=== PATIENT | male | born 1940 | race Caucasian/White ===

== ENCOUNTER → 2017-09-14 | Outpatient (CLI) | payer MEDICARE, BC | END | disposition home or self-care (01) | LOC: PCVCCLINIC 11:33 | DX: R01.1 Cardiac murmur, unspecified (principal); I35.0 Nonrheumatic aortic (valve) stenosis; I05.0 Rheumatic mitral stenosis; E78.5 Hyperlipidemia, unspecified; I10 Essential (primary) hypertension; E11.9 Type 2 diabetes mellitus without complications | CPT/HCPCS: 93005; G0463 ==

== ENCOUNTER → 2017-12-16 | Outpatient (CLI) | payer MEDICARE, BC | END | disposition home or self-care (01) | LOC: PCVCCLINIC 11:47 | PROVIDERS: ATTEND Internal Medicine | DX: I10 Essential (primary) hypertension (principal); I35.0 Nonrheumatic aortic (valve) stenosis; R01.1 Cardiac murmur, unspecified; E78.5 Hyperlipidemia, unspecified; Z79.82 Long term (current) use of aspirin | CPT/HCPCS: G0463 ==

== ENCOUNTER → 2018-04-05 | Outpatient (CLI) | payer MEDICARE, BC ==
--- NOTE | 2018-04-05 11:54 | PCVCIMAG ---
APPROVED REPORT Study performed: 04/05/2018 09:49:00 EXAM: Comprehensive 2D, Doppler, and color-flow Echocardiogram Patient Location: Echo lab Status: routine BSA: 2.11 HR: 82 bpmBP: 130/70 mmHg Rhythm: NSR Other Information Study Quality: Technically Difficult Risk Factors: Cardiac Risk Factors: HTN, Hyperlipidemia, DM Indications Diabetes Hypertension/HDD 2D Dimensions IVSd: 14.07 (7-11mm)LVOT Diam: 19.64 (18-24mm) LVDd: 35.98 mm PWd: 11.63 (7-11mm)Ascending Ao: 39.13 (22-36mm) LVDs: 29.23 (25-40mm) Left Atrium: 35.28 (27-40mm) Aortic Root: 30.18 mm LV Single Plane 4CH: 46.35 % LV Single Plane 2CH: 66.88 % Volumes Left Atrial Volume (Systole) Single Plane 4CH: 50.77 mLSingle Plane 2CH: 53.34 mL LA ESV Index: 25.00 mL/m2 Aortic Valve AoV Peak [place].: 4.35 m/s AO Peak Gr.: 75.53 mmHgLVOT Max P.62 mmHg AO Mean Gr.: 55.32 mmHgLVOT Mean P.69 mmHg AO V2 Mean: 3.68 m/sLVOT Max V: 1.07 m/s AO V2 VTI: 93.31 cmLVOT Mean V: 0.79 m/s DANUTA (VTI): 0.84 [id number] V1 VTI: 25.87 cm DANUTA Vmax: 0.75 cm2 AI Vmax: 4.12 m/sSV (LVOT): 78.[address] [place]: 3.62 m/s2 AI PHT: 330.13 ms Mitral Valve MV Peak Gr.: 11.03 mmHg MV Mean Gr.: 5.68 mmHgE/A Ratio: 1.0 MV Decel. Time: 281.18 ms MV E Max [place].: 1.40 m/s MV A [place].: 1.45 m/s MV Max [place].: 1.66 m/s MV Mean [place].: 1.14 m/s MV VTI: 434.08 mm MVA VTI: 180.52 mm2 MV PHT: 95.17 ms MVA (PHT): 2.31 cm2 TDI E/Lateral E': 20.00E/Medial E': 23.33 Medial E' [place].: 0.06 m/s Lateral E' [place].: 0.07 m/s Pulmonary Valve PV Peak Gr.: 2.13 mmHg Tricuspid Valve TR Peak [place].: 3.34 m/s TR Peak Gr.: 44.50 mmHg Left Ventricle The left ventricle is normal size. There is normal LV segmental wall motion. Mild concentric left ventricular hypertrophy. Left ventricular systolic function is normal. The left ventricular ejection fraction is within the normal range. LVEF is 55-60%. The left ventricular diastolic function is normal. Right Ventricle The right ventricle is normal size. The right ventricular systolic function is normal. Atria The left atrium size is normal. The right atrium size is normal. Aortic Valve Aortic valve leaflets are moderately thickened. Trace aortic regurgitation. Aortic peak gradient is 76mmHg. Mean gradient is 55mmHg. Calculated aortic valve is .7cm2. Mitral Valve Severe mitral annular calcification. Mild mitral regurgitation. Mitral valve area calculated 1.8cm2. Tricuspid Valve The tricuspid valve is normal in structure. Trace tricuspid regurgitation. Pulmonary artery pressure 52mmHg. Pulmonic Valve The pulmonary valve is normal in structure. Trace pulmonic regurgitation. Great Vessels The aortic root is normal in size. IVC is normal in size and collapses >50% with inspiration. Pericardium There is no pericardial effusion. <Conclusion> The left ventricle is normal size. LVEF is 55-60%. Aortic valve leaflets are moderately thickened. Trace aortic regurgitation. Aortic peak gradient is 76mmHg. Mean gradient is 55mmHg. Calculated aortic valve is .7cm2. Severe mitral annular calcification. Mild mitral regurgitation. Mitral valve area calculated 1.8cm2. The tricuspid valve is normal in structure. Trace tricuspid regurgitation. Pulmonary artery pressure 52mmHg. The pulmonary valve is normal in structure. Trace pulmonic regurgitation. There is no pericardial effusion.
== END | disposition home or self-care (01) ==
LOC: PCVCIMAG 12:31
PROVIDERS: ATTEND Internal Medicine
DX: Z01.812 Encounter for preprocedural laboratory examination (principal); I34.0 Nonrheumatic mitral (valve) insufficiency; R01.1 Cardiac murmur, unspecified; I10 Essential (primary) hypertension; R06.00 Dyspnea, unspecified; E78.5 Hyperlipidemia, unspecified; E11.9 Type 2 diabetes mellitus without complications; Z79.82 Long term (current) use of aspirin; Z87.891 Personal history of nicotine dependence
CPT/HCPCS: 36415; 93005; 93306; G0463

== ENCOUNTER → 2018-07-25 | Outpatient (CLI) | payer MEDICARE, BC | END | disposition home or self-care (01) | LOC: PCVCCLINIC 10:00 | PROVIDERS: ATTEND Internal Medicine | DX: I08.0 Rheumatic disorders of both mitral and aortic valves (principal); I10 Essential (primary) hypertension; E11.9 Type 2 diabetes mellitus without complications; J44.9 Chronic obstructive pulmonary disease, unspecified; E78.5 Hyperlipidemia, unspecified; Z79.82 Long term (current) use of aspirin | CPT/HCPCS: 93005; G0463 ==